=== PATIENT | female | born 2000 | race Caucasian/White ===

== ENCOUNTER 2019-09-12 12:55 | Emergency (ER) | payer MEDICAID ==
[~2019-09-12] VITALS: Ht 165.1 cm; Wt 60.8 kg
[2019-09-12 13:02] VITALS: BP 132/90
--- NOTE | 2019-09-12 13:09 | NUR ---
PT TO BED 7 WITH STEADY GAIT
--- NOTE | 2019-09-12 13:16 | NUR ---
R SIDED FACIAL SWELLING AND PAIN 08/08 X WEDNESDAY. WAS SEEN BY JAIR DUENAS AND GIVEN A PRESCRIPTION, NO RELIEF. NO FACIAL DROPPING NOTED. VSS. [id number]. BED IS DOWN, LOCKED, BED RAIL X 1, ERMD TO SEE PT PMH- DENIES RX-CEPHALEXIN, PRENIDONE, IBUPROFEN
[2019-09-12 14:26] VITALS: BP 128/74
== END 2019-09-12 14:26 | disposition home or self-care (01) ==
LOC: MED 12:55
DX: L03.211 Cellulitis of face (principal)
CPT/HCPCS: 99283

== ENCOUNTER 2020-05-02 12:16 | Emergency (ER) | payer MEDICAID, OTHER ==
[~2020-05-02] VITALS: Ht 157.5 cm; Wt 66.8 kg
[2020-05-02 12:27] VITALS: BP 130/85
--- NOTE | 2020-05-02 12:31 | NUR ---
Patient ambulated to bed 1.
--- NOTE | 2020-05-02 12:36 | NUR ---
19 Y/O F C/C LOWER ABDOMINAL DISCOMFORT X 15 DAYS; AND VOMITING X 10 DAYS. PT WITH POOR APPETITE. DENIES HEMATURIA, DYSURIA, PREVIOUS/CURRENT PREGNANCIES. PT PRESENTS IN NO DISTRESS, VSS. PT NKA. NO HX. NO RX. NO DIARRHEA. SIDE RAIL X1.
[2020-05-02 13:39] LABS: APPEARANCE,URINE CLEAR (CLEAR); BILIRUBIN,URINE NEGATIVE (NEGATIVE); BLOOD, URINE NEGATIVE (NEGATIVE); COLOR,URINE YELLOW (YELLOW); LEUKOCYTE ESTERASE ,URINE NEGATIVE (NEGATIVE); NITRITE, URINE NEGATIVE (NEGATIVE); PH,URINE 6.5 (5.0-9.0); UGLUCOSE NEGATIVE (NEGATIVE)
[2020-05-02 13:41] LABS: BASOPHILS # (AUTO) 0.1 K/uL (0.00-0.22); BASOPHILS % (AUTO) 0.9 % (0.0-2.0); EOSINOPHILS # (AUTO) 0.2 K/uL (0-0.4); EOSINOPHILS % (AUTO) 2.6 % (0.0-4.0); HEMATOCRIT 38.1 % (36-48); HEMOGLOBIN 13.1 g/dL (12.0-16.0); LYMPHOCYTES # (AUTO) 2.2 K/uL (2.5-16.5); LYMPHOCYTES % (AUTO) 31.6 % (20.5-51.1); MEAN CORPUSCULAR HEMOGLOBIN 31 pg (27-31); MEAN CORPUSCULAR HGB CONC 34 g/dL (33-37); MEAN CORPUSCULAR VOLUME 88.7 fL (80-94); MONOCYTES # (AUTO) 0.5 K/uL (0.8-1.0); MONOCYTES % (AUTO) 7.4 % (1.7-9.3); NEUTROPHILS # (AUTO) 4.1 K/uL (1.8-7.7); NEUTROPHILS % (AUTO) 57.5 % (42.2-75.2); PLATELET COUNT (AUTO) 239 K/uL (140-450); RED CELL DISTRIBUTION WIDTH 12.5 % (11.6-13.7); WHITE BLOOD COUNT (AUTO) 7.1 K/uL (4.8-10.8)
--- NOTE | 2020-05-02 13:50 | NUR ---
PT RESTING IN BED, SIDE RAIL X1
[2020-05-02 15:20] VITALS: BP 128/82
--- NOTE | 2020-05-02 15:20 | NUR ---
Patient discharged with v/s stable. Written and verbal after care instructions given and explained. Patient alert, oriented and verbalized understanding of instructions. Ambulatory with steady gait. All questions addressed prior to discharge. ID band removed. Patient advised to follow up with PMD. Rx of REGLAN given. Patient educated on indication of medication including possible reaction and side effects. Opportunity to ask questions provided and answered.
== END 2020-05-02 15:20 | disposition home or self-care (01) ==
LOC: MED 12:16
DX: O26.891 Other specified pregnancy related conditions, first trimester (principal)
CPT/HCPCS: 36415; 76801; 81003; 81025; 84702; 85025; 86900; 86901; 99284; Q0092

== ENCOUNTER 2020-09-10 18:07 | Observation (INO) | payer OTHER ==
[~2020-09-10] VITALS: Ht 157.5 cm; Wt 69.4 kg
--- NOTE | 2020-09-10 18:28 | NUR ---
PT HAS BEEN TAKEN TO L[facility]D STRAIGHTLY FROM ER VIA PER DR. GOLD'S REQUEST.
[2020-09-10] MEDS ORDERED: PNV91TAB8 PO (18:46)
[2020-09-10] MEDS ORDERED: LACTATED RINGERS 1,000 ML IV SCH (18:55)
[2020-09-10 19:04] VITALS: BP 122/83
[2020-09-10 19:16] LABS: APPEARANCE,URINE CLEAR (CLEAR); BILIRUBIN,URINE NEGATIVE (NEGATIVE); BLOOD, URINE NEGATIVE (NEGATIVE); COLOR,URINE YELLOW (YELLOW); LEUKOCYTE ESTERASE ,URINE NEGATIVE (NEGATIVE); NITRITE, URINE NEGATIVE (NEGATIVE); PH,URINE 6.5 (5.0-9.0); UGLUCOSE NEGATIVE (NEGATIVE)
[2020-09-10 19:18] LABS: BASOPHILS % (AUTO) 0.4 % (0.0-2.0); EOSINOPHILS # (AUTO) 0.2 K/uL (0-0.4); EOSINOPHILS % (AUTO) 2.5 % (0.0-4.0); HEMATOCRIT 34.1 % (36-48); LYMPHOCYTES # (AUTO) 1.5 K/uL (2.5-16.5); LYMPHOCYTES % (AUTO) 21.5 % (20.5-51.1); MEAN CORPUSCULAR HEMOGLOBIN 32 pg (27-31); MEAN CORPUSCULAR HGB CONC 35 g/dL (33-37); MEAN CORPUSCULAR VOLUME 89.9 fL (80-94); MONOCYTES # (AUTO) 0.5 K/uL (0.8-1.0); MONOCYTES % (AUTO) 7.8 % (1.7-9.3); NEUTROPHILS # (AUTO) 4.7 K/uL (1.8-7.7); NEUTROPHILS % (AUTO) 67.8 % (42.2-75.2); PLATELET COUNT (AUTO) 180 K/uL (140-450); RED CELL DISTRIBUTION WIDTH 13.3 % (11.6-13.7)
[2020-09-10 19:47] LABS: ALBUMIN 3.2 g/dL (3.4-5.0); ANION GAP 16.2 (8-16); CARBON DIOXIDE 20.4 mmol/L (21-32); CREATININE 0.6 mg/dL (0.6-1.3); POTASSIUM 3.6 mmol/L (3.5-5.1); PROTHROMBIN TIME 9.5 secs (10.8-13.4); TOTAL BILIRUBIN 0.2 mg/dL (0.0-1.0)
[2020-09-10 19:53] LABS: URIC ACID 2.3 mg/dL (2.6-7.2)
[2020-09-10 19:57] LABS: URINE TOTAL PROTEIN 19.9 mg/dL (0-12)
== END 2020-09-10 21:05 | disposition home or self-care (01) ==
LOC: MLD 18:25 → EDSTATUS 18:38
PROVIDERS: ADMIT Obstetrics & Gynecology; ATTEND Obstetrics & Gynecology
DX: O26.892 Other specified pregnancy related conditions, second trimester (principal); Z20.828 Contact with and (suspected) exposure to other viral communicable diseases; R51.9 Headache, unspecified; R42 Dizziness and giddiness; Z3A.26 26 weeks gestation of pregnancy
CPT/HCPCS: 36415; 76805; 80053; 81003; 82570; 84550; 85025; 85384; 85610; 85730; 86886; 86900; 86901; 87426; Q0092; G0378

== ENCOUNTER 2020-11-24 00:17 | Observation (INO) | payer OTHER ==
[~2020-11-24] VITALS: Ht 154.9 cm; Wt 71.2 kg
[~2020-11-24 00:17] MED LIST: PNV91TAB8 PO
[2020-11-24 00:53] VITALS: BP 122/80
== END 2020-11-24 02:44 | disposition home or self-care (01) ==
LOC: MLD 00:17
PROVIDERS: ADMIT Obstetrics & Gynecology; ATTEND Obstetrics & Gynecology
DX: O42.913 Preterm premature rupture of membranes, unspecified as to length of time between rupture and onset of labor, third trimester (principal); Z3A.36 36 weeks gestation of pregnancy
CPT/HCPCS: 59025; 76815; 81000; G0378

== ENCOUNTER 2020-12-10 09:08 | Inpatient (IN) | payer OTHER ==
[~2020-12-10] VITALS: Ht 152.4 cm; Wt 71.2 kg
[2020-12-10] MEDS ORDERED: METHYLERGONOVINE 0.2 MG/ML AMP IM PRN (09:40)
[2020-12-10] MEDS ORDERED: CARBOPROST 250 MCG/ML AMP IM PRN (09:40)
[2020-12-10] MEDS: LACTATED RINGERS 1,000 ML IV SCH ×3 (10:12→18:30)
[2020-12-10] MEDS ORDERED: MISOPROSTOL 25 MCG TAB VG PRN (10:15)
[2020-12-10 12:03] LABS: BASOPHILS # (AUTO) 0.1 K/uL (0.00-0.22); BASOPHILS % (AUTO) 1.3 % (0.0-2.0); EOSINOPHILS # (AUTO) 0.2 K/uL (0-0.4); HEMATOCRIT 37.1 % (36-48); HEMOGLOBIN 12.7 g/dL (12.0-16.0); LYMPHOCYTES # (AUTO) 1.3 K/uL (2.5-16.5); LYMPHOCYTES % (AUTO) 23.9 % (20.5-51.1); MEAN CORPUSCULAR HEMOGLOBIN 31 pg (27-31); MEAN CORPUSCULAR HGB CONC 34 g/dL (33-37); MEAN CORPUSCULAR VOLUME 91.1 fL (80-94); MONOCYTES # (AUTO) 0.4 K/uL (0.8-1.0); MONOCYTES % (AUTO) 8.2 % (1.7-9.3); NEUTROPHILS # (AUTO) 3.4 K/uL (1.8-7.7); NEUTROPHILS % (AUTO) 63.6 % (42.2-75.2); PLATELET COUNT (AUTO) 156 K/uL (140-450); RED BLOOD CELL COUNT(AUTO) 4.07 MIL/uL (4.20-5.40); RED CELL DISTRIBUTION WIDTH 13.1 % (11.6-13.7); WHITE BLOOD COUNT (AUTO) 5.4 K/uL (4.8-10.8)
[2020-12-10 13:42] LABS: ALBUMIN 2.9 g/dL (3.4-5.0); CARBON DIOXIDE 22.5 mmol/L (21-32); CREATININE 0.6 mg/dL (0.6-1.3); POTASSIUM 3.5 mmol/L (3.5-5.1); TOTAL BILIRUBIN 0.3 mg/dL (0.0-1.0)
[2020-12-10 14:18] LABS: APPEARANCE,URINE CLOUDY (CLEAR); BILIRUBIN,URINE 1+ (NEGATIVE); BLOOD, URINE NEGATIVE (NEGATIVE); COLOR,URINE AMBER (YELLOW); LEUKOCYTE ESTERASE ,URINE 2+ (NEGATIVE); NITRITE, URINE NEGATIVE (NEGATIVE); UGLUCOSE NEGATIVE (NEGATIVE)
[2020-12-10] MEDS ORDERED: ONDANSETRON 4 MG/2 ML VIAL IVP PRN (14:20)
[2020-12-10] MEDS ORDERED: MORPHINE SULFATE 10 MG/ML VIAL IVP PRN (14:30)
[2020-12-10 17:44] LABS: RBC,URINE 0-5 /HPF (0-5)
[2020-12-10] MEDS ORDERED: ROPIVACAINE 0.2%/NS PREMIX 200 ML EPI ONE (17:50)
[2020-12-10] MEDS ORDERED: OXYTOCIN 20 UNITS/LR PREMIX 1,000 ML IV ONE (18:10)
[2020-12-10] MEDS: OXYTOCIN 20 UNITS in LACTATED RINGERS 1,000 ML IV SCH (18:32)
[2020-12-11] MEDS: OXYTOCIN 20 UNITS in LACTATED RINGERS 1,000 ML IV SCH (01:07)
[2020-12-11] MEDS: LACTATED RINGERS 1,000 ML IV SCH (01:50)
[2020-12-11] MEDS ORDERED: ONDANSETRON 4 MG/2 ML VIAL IVP PRN (01:50)
[2020-12-11] MEDS ORDERED: IBUPROFEN 800 MG TAB PO PRN (03:20)
[2020-12-11] MEDS ORDERED: BENZOCAINE/MENTHOL 20%-0.5% 60 GM CAN TP PRN (03:20)
[2020-12-11] MEDS ORDERED: SIMETHICONE 80 MG TAB.CHEW PO PRN (03:20)
[2020-12-11] MEDS ORDERED: METHYLERGONOVINE 0.2 MG/ML AMP IM PRN (03:20)
[2020-12-11] MEDS ORDERED: METHYLERGONOVINE 0.2 MG TAB PO PRN (03:20)
[2020-12-11] MEDS ORDERED: bisacodyL 5 MG TABEC PO PRN (03:20)
[2020-12-11] MEDS ORDERED: MEASLES, MUMPS, AND RUBELLA 1 VIAL SQVAC PRN (03:20)
[2020-12-11] MEDS ORDERED: DOCUSATE SODIUM 100 MG GELCAP PO PRN (03:20)
[2020-12-11] MEDS ORDERED: OXYTOCIN 10 UNITS/ML VIAL IM PRN (03:20)
--- NOTE | 2020-12-11 09:01 | NUR ---
PATIENT HAS BEEN SCREENED AND CATEGORIZED LOW NUTRITION RISK. PATIENT WILL BE SEEN WITHIN 7 DAYS OF ADMISSION. 12/16/[address]
[2020-12-11] MEDS: IBUPROFEN 600 MG TAB PO PRN (21:39)
[2020-12-11] MEDS ORDERED: FLU VACCINE QS2020-21 0.5 ML SYR IMVAC PRN (22:55)
[2020-12-12] MEDS: IBUPROFEN 600 MG TAB PO PRN (04:46)
[2020-12-12 08:52] LABS: HEMATOCRIT 31.4 % (36-48); HEMOGLOBIN 10.8 g/dL (12.0-16.0)
== END 2020-12-13 11:17 | disposition home or self-care (01) | DRG 560 ==
LOC: MLD 09:08 → MFCC 12-11 06:33
PROVIDERS: ADMIT Obstetrics & Gynecology; ATTEND Obstetrics & Gynecology
PROC: 10E0XZZ Delivery of Products of Conception, External Approach (ICD-10-PCS; principal; 2020-12-11)
PROC: 10E0XZZ Delivery of Products of Conception, External Approach (ICD-10-PCS; 2020-12-11)
PROC: 3E0D7GC Introduction of Other Therapeutic Substance into Mouth and Pharynx, Via Natural or Artificial Opening (ICD-10-PCS; 2020-12-11)
PROC: 0HQ9XZZ Repair Perineum Skin, External Approach (ICD-10-PCS; 2020-12-11)
DX: O99.02 Anemia complicating childbirth (principal); O70.0 First degree perineal laceration during delivery; Z20.822 Contact with and (suspected) exposure to COVID-19; Z37.0 Single live birth; K59.00 Constipation, unspecified; Z3A.39 39 weeks gestation of pregnancy; O99.62 Diseases of the digestive system complicating childbirth; K92.89 Other specified diseases of the digestive system
CPT/HCPCS: 36415; 76815; 80053; 81001; 85018; 85025; 86592; 86886; 86900; 86901; 87086; 90707; 90715; J2405; J2590; J2795; J7120